=== PATIENT | male | born 1985 | race Caucasian/White ===

== ENCOUNTER 2018-09-19 05:24 | Observation (INO) | payer BC, OTHER ==
[~2018-09-19] VITALS: Ht 177.8 cm; Wt 79.4 kg
[2018-09-19] MEDS ORDERED: SODIUM CHLORIDE 0.9% 1,000ML IVBOLUS ONE (05:30)
[2018-09-19] MEDS ORDERED: ONDANSETRON 2MG/ML, 2ML IVPush ONE (05:30)
[2018-09-19] MEDS ORDERED: SODIUM CHLORIDE FLUSH 10ML SYR IVF ONE (05:30)
[2018-09-19] MEDS ORDERED: MORPHINE SULFATE 4 MG/ML, 1ML ONE (05:33)
--- NOTE | 2018-09-19 05:35 | NUR ---
PT RESTLESS WITH PAIN. UNABLE TO OBTAIN ACCURATE BLOOD PRESSURE. BP ELEVATED PER EMS. PT MEDICATED FOR PAIN AND TRANSPORTED TO ULTRASOUND.
[2018-09-19] MEDS: MORPHINE SULFATE 4 MG/ML, 1ML IVPush PRN ×2 (05:39→05:55)
[2018-09-19] MEDS ORDERED: FAMOTIDINE 20 MG/2 ML ONE (05:41)
[2018-09-19 05:43] LABS: BASOPHILS # (AUTO) 0.04 x10^3/uL (0-0.1); BASOPHILS % (AUTO) 1 % (0-1); EOSINOPHILS # (AUTO) 0.14 x10^3/uL (0-0.4); EOSINOPHILS % (AUTO) 2 % (1-7); LYMPHOCYTES # (AUTO) 2.31 x10^3/uL (1-3.4); LYMPHOCYTES % (AUTO) 27 % (22-44); MD NO; MEAN CORPUSCULAR HEMOGLOBIN 34.1 pg (27.5-34.5); MEAN CORPUSCULAR HGB CONC 35.3 g/dL (33.2-36.2); MEAN CORPUSCULAR VOLUME 96.5 fL (81-97); MEAN PLATELET VOLUME 6.8 fL (7.4-10.4); MONOCYTES # (AUTO) 0.66 x10^3/uL (0.2-0.8); MONOCYTES % (AUTO) 8 % (2-9); NEUTROPHILS # (AUTO) 5.37 x10^3/uL (1.8-6.8); NEUTROPHILS % (AUTO) 63 % (42-75); PLATELET COUNT 248 x10^3/uL (130-400); RED BLOOD COUNT 4.64 x10^6/uL (4.38-5.82); RED CELL DISTRIBUTION WIDTH 12.4 % (9.4-14.8)
[2018-09-19] MEDS ORDERED: VENL75CA PO (05:47)
--- NOTE | 2018-09-19 05:55 | NUR ---
PT IN ULTRASOUND. STATES ABD PAIN DOWN TO 4/10. RESTLESSNESS CONTINUES. 2ND DOSE MORPHINE GIVEN.
[2018-09-19 05:56] LABS: ALANINE AMINOTRANSFERASE 67 U/L (12-78); ALBUMIN 3.9 g/dL (3.4-5.0); ANION GAP 6 mmol/L (5-15); CALCIUM 8.8 mg/dL (8.5-10.1); CHLORIDE 108 mmol/L (98-107); CREATININE 0.89 mg/dL (0.7-1.3)
[2018-09-19 05:58] LABS: ALKALINE PHOSPHATASE 67 U/L (45-117); BILIRUBIN,TOTAL 0.3 mg/dL (0.2-1.0); TOTAL PROTEIN 7.4 g/dL (6.4-8.2)
[2018-09-19] MEDS ORDERED: FAMOTIDINE 20 MG/2 ML IVPush ONE (06:00)
[2018-09-19] MEDS ORDERED: OMNIPAQUE 350 MG/ML, 100ML BOTTLE ONE (06:15)
[2018-09-19] MEDS ORDERED: HYDROmorphone 2 MG/ML, 1ML ONE ×4 (06:36→10:08)
[2018-09-19] MEDS: HYDROmorphone 2 MG/ML, 1ML IVPush PRN ×2 (06:40→07:24)
--- NOTE | 2018-09-19 06:40 | NUR ---
PAIN DOWN TO 3/10, PT CONTINUES TO APPEAR IN OBVIOUS PAIN. VS NOTED. MEDICATION WITH DILAUDID. PT DENIES NAUSEA.
--- NOTE | 2018-09-19 06:50 | NUR ---
Recieved bedside report from DAVID Madsen. All questions answered. Assuming care of this pt. Pt sitting on gurney. Pt reports 3/10 abdominal pain. NADN. PIV fluids infusing per EMAR. Waiting results of imaging at this time. Pt connected to NIBP and continous pulse ox. All safety measures in place. Pt has call light within reach and is watching TV.
--- NOTE | 2018-09-19 07:27 | NUR ---
Pt remains in discomfort. Pt states, "The dilaudid seemed to help longer." Provided medication for pain per EMAR. Pt's current pain level is 6/10 epigastric area. Pt sitting up in gurney guarding abdomen. PIV fluids infusing per EMAR. ED MD rechecked pt. Pending call back from surgeon.
[2018-09-19] MEDS ORDERED: POTASSIUM CHLORIDE 20 MEQ in D5%-0.45% NACL 1,000 ML IV ONE (07:43)
--- NOTE | 2018-09-19 07:57 | NUR ---
Pt ambulates with steady gait and balance. Pt states, "I need to make a phone call." Pt does this when RN across arceo in other pt room.
[2018-09-19] MEDS ORDERED: SODIUM CHLORIDE FLUSH 10ML SYR IVF PRN (08:00)
[2018-09-19] MEDS ORDERED: HYDROmorphone 1 MG/ML, 1ML IVPush PRN ×3 (08:00→11:00)
--- NOTE | 2018-09-19 08:48 | NUR ---
Provided report to DAVID Jones. All questions answered. Pt ready to transfer to floor.
--- NOTE | 2018-09-19 08:50 | NUR ---
LATE NOTE ENTRY FOR 0843: Provided pain medication per EMAR. Pt states, "I am aat a 7 or an 8. When the medication is working I am down to a 1 or a 2 and it is dull. It then comes back fast and shoots up."
--- NOTE | 2018-09-19 08:51 | NUR ---
Pt states, "My pain now is a 4."
[2018-09-19 09:53] VITALS: BP 130/85
[2018-09-19] MEDS ORDERED: BUPIVACAINE/PF 0.25% ONE (10:46)
[2018-09-19] MEDS ORDERED: EPINEPHRINE 1 MG/ML, 1ML ONE (10:46)
[2018-09-19] MEDS ORDERED: OXYcodone 5 MG/5 ML ORAL.SOL UDC PO PRN (11:30)
[2018-09-19] MEDS ORDERED: METOPROLOL 1 MG/ML, 5ML IV PRN (11:30)
[2018-09-19] MEDS ORDERED: LABETALOL 5MG/ML, 20ML IV PRN (11:30)
[2018-09-19] MEDS ORDERED: PROMETHAZINE 25 MG/ML, 1ML IV PRN (11:30)
[2018-09-19] MEDS ORDERED: DIPHENHYDRAMINE 50 MG/ML, 1ML IVPush PRN (11:30)
[2018-09-19] MEDS ORDERED: PROCHLORPERAZINE 5 MG/ML, 2ML IV PRN (11:30)
[2018-09-19] MEDS ORDERED: MEPERIDINE/PF 25MG/0.5ML IVPush PRN (11:30)
[2018-09-19] MEDS ORDERED: HYDROmorphone 2 MG/ML, 1ML IVPush PRN (11:30)
[2018-09-19] MEDS ORDERED: hydrALAzine 20 MG/ML, 1ML IV PRN (11:30)
[2018-09-19] MEDS ORDERED: FENTANYL PF 250 MCG/5ML ONE (12:02)
[2018-09-19] MEDS ORDERED: MIDAZOLAM 1 MG/ML, 2ML ONE (12:02)
[2018-09-19] MEDS ORDERED: CEFAZOLIN 1,000 MG ONE (12:20)
[2018-09-19] MEDS ORDERED: PROPOFOL 10 MG/ML, 20ML ONE (12:20)
[2018-09-19] MEDS ORDERED: NEOSTIGMINE 1 MG/ML, 10ML ONE (12:20)
[2018-09-19] MEDS ORDERED: SUCCINYLCHOLINE 20 MG/ML, 10ML ONE (12:20)
[2018-09-19] MEDS ORDERED: ROCURONIUM 10MG/ML,5ML ONE (12:20)
[2018-09-19] MEDS ORDERED: DEXAMETHASONE 4 MG/ML, 1ML ONE (12:20)
[2018-09-19] MEDS ORDERED: GLYCOPYRROLATE 0.2MG/1ML, 5ML ONE (12:20)
[2018-09-19] MEDS ORDERED: ONDANSETRON 2MG/ML, 2ML ONE (12:20)
[2018-09-19] MEDS ORDERED: BUPIVACAINE/PF-EPI 0.25% 1:200K INFIL ONE (12:34)
[2018-09-19] MEDS ORDERED: FENTANYL PF 100 MCG/2ML ONE (13:46)
[2018-09-19] MEDS ORDERED: OXYcodone 5 MG/5 ML ORAL.SOL UDC ONE (13:47)
[2018-09-19] MEDS: FENTANYL PF 100 MCG/2ML IV PRN ×2 (13:55→14:17)
[2018-09-19] MEDS ORDERED: ALBUTEROL/IPRATROPIUM 2.5MG/0.5MG, 3 ML ONE (13:55)
[2018-09-19] MEDS: ALBUTEROL/IPRATROPIUM 2.5MG/0.5MG, 3 ML NPPB PRN ×2 (13:55→23:41)
[2018-09-19 14:00] VITALS: BP 122/72
[2018-09-19] MEDS: LACTATED RINGERS 1,000 ML IV SCH (16:00)
[2018-09-19] MEDS ORDERED: MORPHINE SULFATE 4 MG/ML, 1ML IVPush PRN (16:00)
[2018-09-19] MEDS ORDERED: ONDANSETRON 2MG/ML, 2ML IVPush PRN (16:00)
[2018-09-19] MEDS ORDERED: HYDROmorphone 2 MG/ML, 1ML IV PRN (16:00)
[2018-09-19 16:37] VITALS: BP 122/82
[2018-09-19] MEDS: HYDROcodone/APAP 5/325 TABLET PO PRN (21:06)
[2018-09-19 21:09] VITALS: BP 116/73
[2018-09-19] MEDS ORDERED: ALBUTEROL SULFATE 2.5 MG/3 ML ONE (23:35)
[2018-09-20 00:01] VITALS: BP 123/74
[2018-09-20] MEDS: KETOROLAC 30 MG/1 ML IV PRN ×2 (02:12→08:19)
[2018-09-20] MEDS: HYDROcodone/APAP 5/325 TABLET PO PRN ×2 (02:51→08:19)
[2018-09-20 03:01] VITALS: BP 125/72
[2018-09-20] MEDS: LACTATED RINGERS 1,000 ML IV SCH (04:58)
[2018-09-20 06:56] VITALS: BP 111/77
[2018-09-20] MEDS ORDERED: HYDR-3240 PO (09:09)
== END 2018-09-20 09:45 | disposition home or self-care (01) ==
LOC: ED 06:34 → 4NOR 08:36 → INTOOBSV 08:36 → DCLOUNGE 09-20 09:20
PROVIDERS: ADMIT Surgery; ATTEND Surgery
DX: K80.00 Calculus of gallbladder with acute cholecystitis without obstruction (principal); K66.0 Peritoneal adhesions (postprocedural) (postinfection); K76.0 Fatty (change of) liver, not elsewhere classified; K82.8 Other specified diseases of gallbladder
CPT/HCPCS: 36415; 47562; 74177; 76700; 80053; 83690; 85025; 88304; 94640; 96374; 96375; 96376; 99284; G0378; J0171; J0330; J0690; J1100; J1170; J1885; J2250; J2405; J2704; J2710; J3010; J3490; J7030; J7620; Q9967